=== PATIENT | female | born 1985 | race Caucasian/White ===

== ENCOUNTER 2017-04-02 08:22 | Day surgery (SDC) | payer OTHER ==
[2017-03-28 10:19] LABS: HEMATOCRIT 36.6 % (36.0-47.0); HGB HCT DIFFERENCE -0.6; MEAN CORPUSCULAR HEMOGLOBIN 26.8 pg (27.0-33.4); MEAN CORPUSCULAR HGB CONC 32.9 g/dL (32.0-36.0); MEAN CORPUSCULAR VOLUME 82 fl (80-97); RED CELL DISTRIBUTION WIDTH 14.8 % (11.5-14.0); WHITE BLOOD COUNT 6.6 10^3/uL (4.0-10.5)
[2017-03-28 10:35] LABS: APPEARANCE,URINE CLEAR; BILIRUBIN,URINE NEGATIVE (NEGATIVE); GLUCOSE, URINE NEGATIVE (NEGATIVE); KETONES,URINE NEGATIVE (NEGATIVE); LEUKOCYTE ESTERASE,URINE NEGATIVE (NEGATIVE); NITRITE,URINE NEGATIVE (NEGATIVE); PROTEIN,URINE NEGATIVE (NEGATIVE); URINE SPECIFIC GRAVITY 1.028; UROBILINOGEN,URINE NEGATIVE mg/dL (<2.0)
[2017-03-28 10:53] LABS: ALANINE AMINOTRANSFERASE 26 U/L (9-52); ALBUMIN 4.3 g/dL (3.5-5.0); ALKALINE PHOSPHATASE 62 U/L (38-126); ANION GAP 8 (5-19); ASPARTATE AMINO TRANSFERASE 19 U/L (14-36); BILIRUBIN,DIRECT 0.4 mg/dL (0.0-0.4); BILIRUBIN,TOTAL 0.9 mg/dL (0.2-1.3); BLOOD UREA NITROGEN 12 mg/dL (7-20); CALCIUM 9.6 mg/dL (8.4-10.2); CARBON DIOXIDE 28 mmol/L (22-30); CHLORIDE 103 mmol/L (98-107); CREATININE RESULT 0.73 mg/dL (0.52-1.25); GLUCOSE 87 mg/dL (75-110); POTASSIUM 4.3 mmol/L (3.6-5.0); SODIUM 139.4 mmol/L (137-145); TOTAL PROTEIN 7.1 g/dL (6.3-8.2)
[~2017-04-02 08:22] MED LIST: CEFAZOLIN 2 GM/D5W RTU 2 GM/50 ML RTUPB IV PRN; DEXAMETHASONE SOD PHOSPHATE INJ 4 MG/1 ML VIAL ONE; GABAPENTIN 400 MG CAPSULE PO PRN; GLYCOPYRROLATE INJ 0.4 MG/2 ML VIAL ONE; LACTATED RINGERS 1000 ML IV PRN; LIDOCAINE 0.5% INJ-PF (5 MG/ML) 50 ML SDV SUBCUT PRN; LIDOCAINE 2% INJ-PF (20 MG/ML) 10 ML AMPUL ONE; METOCLOPRAMIDE HCL INJ/PF 10 MG/2 ML SDV ONE; NEOSTIGMINE METHYLSULFATE 10 MG/10 ML VIAL ONE; ONDANSETRON HCL INJ/PF 4 MG/2 ML SDV ONE; ROCURONIUM BROMIDE INJ 50 MG/5 ML VIAL IV ONE
[2017-04-02] MEDS ORDERED: PROMETHAZINE HCL INJ 25 MG/1 ML VIAL ONE (10:04)
[2017-04-02] MEDS ORDERED: MIDAZOLAM 2 MG/2 ML INJ ONE ×2 (10:04→10:05)
[2017-04-02] MEDS ORDERED: FENTANYL CITRATE INJ/PF 100 MCG/2 ML AMPUL ONE (10:05)
[2017-04-02] MEDS ORDERED: EPHEDRINE SULFATE INJ 50 MG/1 ML AMPULE ONE (10:05)
[2017-04-02] MEDS ORDERED: IBUPROFEN INJ 800 MG/8 ML VIAL IV ONE (10:06)
[2017-04-02] MEDS ORDERED: ACETAMINOPHEN 100 ML IV ONE (10:06)
[2017-04-02] MEDS ORDERED: HYDROMORPHONE HCL INJ/PF 2 MG/ML AMPULE ONE (10:06)
[2017-04-02] MEDS ORDERED: PROPOFOL INJ 200 MG/20 ML VIAL IV ONE (10:06)
[2017-04-02] MEDS ORDERED: BUPIVACAINE HCL 0.25 % INJ/PF (2.5 MG/1 ML) 30 ML VIAL ONE (10:14)
[2017-04-02] MEDS ORDERED: DIPHENHYDRAMINE HCL 50 MG/ML VIAL IV PRN (11:56)
[2017-04-02] MEDS ORDERED: ONDANSETRON HCL INJ/PF 4 MG/2 ML SDV IV PRN ×2 (11:56→13:12)
[2017-04-02] MEDS ORDERED: FENTANYL CITRATE INJ/PF 100 MCG/2 ML AMPUL IV PRN ×3 (11:56)
[2017-04-02] MEDS ORDERED: PROMETHAZINE HCL INJ 25 MG/1 ML VIAL IV PRN ×2 (11:56)
[2017-04-02] MEDS ORDERED: MEPERIDINE HCL/PF INJ 25 MG/1 ML DISP.SYRIN IV PRN (11:56)
[2017-04-02] MEDS ORDERED: MORPHINE SULFATE 10 MG/ML INJ IV PRN (11:56)
[2017-04-02] MEDS ORDERED: OXYCODONE-ACETAMINOPHEN 5-325 MG TABLET PO PRN ×2 (11:56)
--- NOTE | 2017-04-02 13:01 | PDOC DISCHARGE SUMMARY ---
Discharge Summary (SDC) - Discharge Final Diagnosis: Menorrhagia Dysmenorrhea Date of Surgery: 04/02/17 Discharge Date: 04/03/17 Condition: Good Forms: Post Operative Treatment or Instructions: Robotic assisted total laparoscopic hysterectomy, bilateral salpingectomy, lysis of pelvic adhesions Cystoscopy Referrals: MILDRED WRIGHT MD [NO LOCAL MD] - Discharge Diet: As Tolerated, Regular Respiratory Treatments at Home: Deep Breathing/Coughing Discharge Activity: Activity As Tolerated, Balance Activity w/Rest, Pelvic Rest , Slowly Increase Activity, No tub bath - you may shower Home Care Assistance: None Needed Report the Following to Your Physician Immediately: Shortness of Breath, Vomiting, Increase in Pain, Fever over 101 Degrees, Unusual Bleeding, Redness, Swelling, Warmth, Drainage-Foul Smelling, Increased Vaginal Bleed
[2017-04-02] MEDS: FENTANYL CITRATE INJ/PF 100 MCG/2 ML AMPUL ONE ×2 (13:10→13:22)
[2017-04-02] MEDS: OXYCODONE-ACETAMINOPHEN 5-325 MG TABLET PO PRN ×2 (14:38→18:25)
[2017-04-02] MEDS: OXYCODONE HCL IR 5 MG TABLET PO PRN ×2 (15:58→20:35)
[2017-04-02] MEDS ORDERED: (PENDING PHARMACY ID) (Oxycodone Hcl/Acetaminophen [Percocet 10-325 Mg Tablet] 1 TAB) PO SCH (18:00)
[2017-04-02] MEDS: IBUPROFEN 800 MG TABLET PO PRN (18:25)
[2017-04-02] MEDS: OXYCODONE HCL IR 5 MG TABLET PO SCH (22:45)
[2017-04-02] MEDS: OXYCODONE-ACETAMINOPHEN 5-325 MG TABLET PO SCH (22:45)
[2017-04-03] MEDS: OXYCODONE-ACETAMINOPHEN 5-325 MG TABLET PO PRN (01:51)
[2017-04-03] MEDS: OXYCODONE HCL IR 5 MG TABLET PO PRN ×2 (04:54→09:49)
[2017-04-03] MEDS: OXYCODONE HCL IR 5 MG TABLET PO SCH (05:41)
[2017-04-03] MEDS: OXYCODONE-ACETAMINOPHEN 5-325 MG TABLET PO SCH (05:41)
--- NOTE | 2017-04-03 06:34 | RADIOLOGY REPORT (SQ) ---
EXAM DESCRIPTION: CTA CHEST COMPLETED DATE/TIME: 04/03/2017 5:57 am REASON FOR STUDY: suspected PE, c/o pain right side of chest. s/p hysterectomy N93.9 ABNORMAL UTERI NE AND VAGINAL BLEEDING, UNSPECIFIED N94.5 SECONDARY DYSMENORRHEA COMPARISON: 09/03/2013. TECHNIQUE: CT scan of the chest performed using helical scanning technique with dynamic intravenous contrast injection. Images reviewed with lung, soft tissue and bone windows. Reconstructed coronal and sagittal MPR images reviewed. Additional 3 dimensional post-processing performed to develop Maximal Intensity Projection images (PR P). All images stored on PACS. All CT scanners at this facility use dose modulation, iterative reconstruction, and/or weight based d osing when appropriate to reduce radiation dose to as low as reasonably achievable (ALARA). [facility]: Dose Right [facility]: CareDose [facility]: Dose Right [facility]: Teradose 4D [facility]: Designer Material CONTRAST TYPE AND DOSE: contrast/concentration: Isovue 370.00 mg/ml; Total Contrast Delivered: 100.0 ml; Total Saline Delivered: 56.0 ml RENAL FUNCTION: None required. The patient is less than 50 years old. RADIATION DOSE: Up-to-date CT equipment and radiation dose reduction techniques were employed. CTDIv ol: 36.4 mGy. DLP: 1071 mGy-cm. . LIMITATIONS: None. FINDINGS: LUNGS AND PLEURA: No masses, infiltrates, pneumothorax. No pleural effusions, calcificati ons. Minimal bibasilar atelectasis -scar. AORTA AND GREAT VESSELS: No aneurysm or dissection. HEART: No pericardial effusion. No right ventricular strain. PULMONARY ARTERIES: No emboli visualized in the main pulmonary arteries or the segmental branches. HILAR AND MEDIASTINAL STRUCTURES: No identified masses or abnormal nodes. HARDWARE: None in the chest. UPPER ABDOMEN: Cholecystectomy. Small gas bubbles of the upper abdomen consistent with recent surger y. Limited exam. THYROID AND OTHER SOFT TISSUES: No masses. No adenopathy. BONES: No acute or significant finding. 3D MIPS: Confirm above findings. OTHER: No other significant finding. IMPRESSION: Small FREE AIR in the abdomen consistent with recent history of hysterectomy. No acute cardiopulmonary findings. NO PULMONARY EMBOLI. COMMENT: This report was called to Nurse Amauri Neal at06:26 on 04/03/2017. TECHNICAL DOCUMENTATION: JOB ID: [id number] Quality ID # [id number]: Final reports with documentation of one or more dose reduction techniques (e.g., Au tomated exposure control, adjustment of the mA and/or kV according to patient size, use of iterative reconstruction technique) 2010 [employer]- All Rights Reserved
[2017-04-03] MEDS ORDERED: ALPRAZOLAM 0.5 MG TABLET PO PRN (06:52)
[2017-04-03] MEDS: IBUPROFEN 800 MG TABLET PO PRN (08:24)
[2017-04-03 10:04] VITALS: BP 120/85
--- NOTE | 2017-04-03 10:39 | XCELERA REPORT ---
[address] [address] Lower Extremity Venous Evaluation Name: ARNULFO MOSLEY Age: 32 yrs Gender: Female : 1985 Patient Status: Outpatient Patient Location: [facility]208^A Study Date: 04/03/2017 07:55 AM Procedure: Color flow and duplex imaging of the veins of the right lower extremity as well as the left Common Femoral vein. Reason For Study: Suspected DVT Ordering Physician: MILDRED WRIGHT Performed By: Alesha Lyons Right Sided Venous Evaluation Normal vessel filling wall to wall, compression and augmentation as well as Colour flow down to the infrageniculate veins. Left Sided Venous Evaluation The left common femoral vein is fully compressible. Spontaneous and phasic flow is present in the left common femoral vein. Interpretation Summary No duplex evidence of DVT or obstruction in the right lower extremity nor in the left Common Femoral vein. : MILDRED WRIGHT > Patrick Everett
--- NOTE | 2017-04-17 16:08 | OPERATIVE REPORT E ---
Operative Report NAME: ARNULFO MOSLEY : 1985 AGE: 32Y DATE OF SURGERY: 04/02/2017 ROOM: 208 PREOPERATIVE DIAGNOSIS: Menorrhagia and dysmenorrhea. POSTOPERATIVE DIAGNOSES: 1. Menorrhagia and dysmenorrhea. 2. Pelvic adhesions. PROCEDURE: Robotic-assisted total laparoscopic hysterectomy, bilateral salpingectomy, and lysis of adhesions. SURGEON: MILDRED WRIGHT M.D. SWITCH MAKER: Dr. Nigel Parks ANESTHESIA: General. COMPLICATIONS: None. ESTIMATED BLOOD LOSS: Per medical record anesthesia report. URINE OUTPUT: Clear at the end of the procedure. SPECIMENS: Uterus, cervix, bilateral fallopian tube remnants. FINDINGS: Normal-appearing uterus with some scar tissue due to prior sections anteriorly and in the posterior cul-de-sac some filmy adhesions. Fallopian tube consistent with bilateral tubal ligation. Normal-appearing ovaries bilaterally. INDICATIONS: This is a 32-year-old female, 7, para 4-0-3-5, with a history of menorrhagia and dysmenorrhea refractory to medical management. After discussing the risks, benefits, and alternatives, including, but not limited to, observation, medical management, endometrial ablation, operative hysteroscopy, open abdominal hysterectomy, total vaginal hysterectomy were discussed with the patient, she elected for the above procedure. PROCEDURE: After the patient was properly consented she was taken to the operating room where general anesthesia was introduced with endotracheal intubation. The patient was transferred to a dorsal lithotomy position using adjustable Corbin stirrups and prepped and draped in the usual sterile fashion. A surgical time out was held. We began with the placement of a VCare medium sized uterine manipulator in typical fashion and placed in a Bauer catheter. Gloves were changed and we proceeded above where 0.25% plain Marcaine local anesthetic was placed supraumbilically. A 12 mm skin incision was made with a scalpel followed by a Veress needle introduced into the peritoneal cavity with correct placement ascertained by a drop in CO2 pressure to less than 3 mmHg. Pneumoperitoneum was established to a pressure of 15 mmHg. The Veress needle was removed and a 12 mm bladeless trocar was advanced into the pneumoperitoneum where immediate visualization with the camera demonstrated an atraumatic entry. We subsequently placed 2 right and 1 left lateral port following the typical routine of local anesthesia followed by a skin incision of 8 mm which was the size of all of these ports followed by placement of the ports under direct visualization. With all ports in place the patient was put in steep Trendelenburg position, the robot was docked, and I scrubbed out and proceeded to the robotic console. My assistant professor of dietetics proceeded to the speech and language assistant port at the laparoscopic port site in the right upper quadrant. Pelvic anatomy was inspected and the findings noted above. The ureters were identified by peristalsis in their usual course at the pelvic brim bilaterally. Dissection was begun on the right using the fenestrated bipolar graspers and the vessel sealer. The round ligament on the right was cauterized and transected. Next, the broad ligament was opened and dissected inferiorly and anteriorly where dense adhesions were found at the bladder flap. This dissection was begun but would be finished at a later point in the surgery. Next, the fallopian tube remnant was dissected from the tubo-ovarian ligament. This dissection was continued along the lateral portion of the uterine body to connect with the previously transected round ligament, also transecting and ligating the utero-ovarian ligament. The broad ligament was then opened and the uterine artery was dissected, identified, cauterized, and transected at the area next to the lower uterine segment. Then, being very careful to hug the uterus during this portion of the procedure, the dissection was continued along the side of the cervix to the top of the Amina ring. The same dissection was repeated on the left side and the areas of dissection were noted to be hemostatic. Next, the vessel sealer was replaced with the monopolar scissors and the edges of the VCare cervical cap were identified. The anterior scar tissue and bladder flap were then further dissected using monopolar cautery and bipolar graspers to be incised and reduced and pushed away from the uterus. The colpotomy was initially added with monopolar cautery on the posterior area behind the uterus in between the uterosacral ligaments and carried around circumferentially until the specimen was freed and pulled through the vagina. Vaginal cuff was then closed with a running V-Loc suture of 3-0 Monocryl, incorporating the uterosacral pedicles for support. The pelvis was then irrigated copiously, hemostasis was noted, and FloSeal hemostatic agent was applied. The robot was undocked. All instruments were removed, the abdomen was desufflated, and the ports were removed. At this time the 12 mm port site fascia was closed with 0 Vicryl and the skin of the 8 and 12 mm ports closed with 4-0 Monocryl in a subcuticular fashion and a Dermabond dressing was applied. Anesthesia was reversed. Sponge, lap, and needle counts were correct at the end of the procedure, and the patient was taken to the PACU in stable condition. DICTATING PHYSICIAN: MILDRED WRIGHT M.D. [id number] PHY#: [id number] ID: [id number] JOB#: [id number] ACCT: [id number] cc:MILDRED WRIGHT M.D. >
== END 2017-04-03 10:58 | disposition home or self-care (01) ==
LOC: OROUT 08:22 → 2N 14:20 → OROUT 04-03 10:58
PROVIDERS: ATTEND Obstetrics & Gynecology
PROC: 0UTC4ZZ Resection of Cervix, Percutaneous Endoscopic Approach (ICD-10-PCS; 2017-04-02)
PROC: 0UT74ZZ Resection of Bilateral Fallopian Tubes, Percutaneous Endoscopic Approach (ICD-10-PCS; 2017-04-02)
PROC: 8E0W4CZ Robotic Assisted Procedure of Trunk Region, Percutaneous Endoscopic Approach (ICD-10-PCS; 2017-04-02)
PROC: 0UT94ZZ Resection of Uterus, Percutaneous Endoscopic Approach (ICD-10-PCS; principal; 2017-04-02 10:30)
DX: N92.0 Excessive and frequent menstruation with regular cycle (principal); N94.5 Secondary dysmenorrhea; N73.6 Female pelvic peritoneal adhesions (postinfective); Z88.2 Allergy status to sulfonamides; Z88.3 Allergy status to other anti-infective agents; Z79.899 Other long term (current) drug therapy
CPT/HCPCS: 58571; S2900; 36415; 71275; 80053; 81001; 81025; 840; 85027; 86850; 86900; 86901; 88307; 93971; J0131; J0690; J1100; J1170; J1741; J2250; J2405; J2550; J2704; J2765; J3010; J3490

== ENCOUNTER 2018-07-02 14:19 | Emergency (ER) | payer OTHER | END 2018-07-02 14:45 | disposition left against medical advice (07) | LOC: ER 14:19 | DX: Z53.21 Procedure and treatment not carried out due to patient leaving prior to being seen by health care provider (principal) ==

== ENCOUNTER 2018-07-02 21:06 | Emergency (ER) | payer MEDICAID, OTHER ==
[2018-07-02] MEDS ORDERED: KETOROLAC TROMETHAMINE INJ/PF 30 MG/1 ML SDV IV ONE (22:34)
[2018-07-02] MEDS ORDERED: NORMAL SALINE 1000 ML 1,000 ML IV ONE (22:34)
--- NOTE | 2018-07-02 23:07 | ER Document Report ---
ED ENT - General Chief Complaint: Sore Throat Stated Complaint: SORE THROAT Time Seen by Provider: 07/02/18 22:24 Mode of Arrival: Ambulatory Information source: Patient TRAVEL OUTSIDE OF THE [place] IN LAST 30 DAYS: No - HPI Patient complains to provider of: Throat problem Onset: Other - 3 days Onset/Duration: Persistent Quality of pain: Achy Severity: Moderate Location of pain: Throat Associated symptoms: Fever, Sore throat Recently seen / treated by doctor: Yes Notes: Patient is a 33-year-old otherwise healthy female presenting to the emergency room today complaining of 3-day history of fever, sore throat, body aches, she was seen at a urgent care facility on Sunday and diagnosed with strep pharyngitis and started on penicillin as well as his own, she reports that she has been feeling worse over the past 2 days and has gotten no relief from these medications - Related Data Allergies/Adverse Reactions: Sulfa (Sulfonamide Antibiotics) Allergy (Unknown, Verified 04/02/17 09:20) ciprofloxacin [From Cipro] Allergy (Verified 04/02/17 09:20) Anaphylaxis ciprofloxacin HCl [From Cipro] Allergy (Verified 04/02/17 09:20) Anaphylaxis Past Medical History - General Information source: Patient - Social History Smoking Status: Never Smoker Family History: Reviewed & Not Pertinent - Past Medical History Cardiac Medical History: Denies: Hx Coronary Artery Disease, Hx DVT, Hx Heart Attack, Hx Hypertension Pulmonary Medical History: Denies: Hx Asthma, Hx Bronchitis, Hx COPD, Hx Pneumonia Neurological Medical History: Denies: Hx Cerebrovascular Accident, Hx Migraine, Hx Seizures Endocrine Medical History: Denies: Hx Diabetes Mellitus Type 2 Renal/ Medical History: Reports: Hx Ovarian Cysts. Denies: Hx Kidney Stones, Hx Pelvic Inflammatory Disease GI Medical History: Denies: Hx Diverticulitis, Hx Gastritis, Hx Gastroesophageal Reflux Disease Musculoskeletal Medical History: Denies Hx Arthritis, Reports Hx Musculoskeletal Trauma Skin Medical History: Denies Hx Cellulitis, Denies Hx MRSA Past Surgical History: Reports: Hx Section - x3, Hx Cholecystectomy, Hx Gynecologic Surgery - D&Cx2, Hx Orthopedic Surgery - L knee, Hx Tubal Ligation - Immunizations Hx Diphtheria, Pertussis, Tetanus Vaccination: Yes Review of Systems - Review of Systems Constitutional: See HPI EENT: See HPI Cardiovascular: No symptoms reported Respiratory: No symptoms reported Gastrointestinal: No symptoms reported Genitourinary: No symptoms reported Female Genitourinary: No symptoms reported Musculoskeletal: See HPI Skin: No symptoms reported Hematologic/Lymphatic: No symptoms reported Neurological/Psychological: No symptoms reported -: Yes All other systems reviewed and negative Physical Exam - Vital signs Vitals: Temp Pulse Resp BP Pulse Ox 98.6 F 102 H 18 134/83 H 99 07/02/18 21:12 07/02/18 21:12 07/02/18 21:12 07/02/18 21:12 07/02/18 21:12 Interpretation: Tachycardic - General General appearance: Appears well, Alert - HEENT Head: Normocephalic, Atraumatic Eyes: Normal Conjunctiva: Normal Extraocular movements intact: Yes Eyelashes: Normal Pupils: PERRL Pharynx: Erythema, Exudate, Tonsillar hypertrophy Neck: Lymphadenopathy - Respiratory Respiratory status: No respiratory distress Chest status: Nontender Breath sounds: Normal Chest palpation: Normal - Cardiovascular Rhythm: Regular Heart sounds: Normal auscultation Murmur: No - Abdominal Inspection: Normal Distension: No distension Bowel sounds: Normal Tenderness: Nontender Organomegaly: No organomegaly - Back Back: Normal, Nontender - Extremities General upper extremity: Normal inspection, Nontender, Normal color, Normal ROM , Normal temperature General lower extremity: Normal inspection, Nontender, Normal color, Normal ROM , Normal temperature, Normal weight bearing. No: Eliseo's sign - Neurological Neuro grossly intact: Yes Cognition: Normal Orientation: AAOx4 [place] Coma Scale Eye Opening: Spontaneous [place] Coma Scale Verbal: Oriented [place] Coma Scale Motor: Obeys Commands [place] Coma Scale Total: 15 Speech: Normal Motor strength normal: LUE, RUE, LLE, RLE Sensory: Normal - Psychological Associated symptoms: Normal affect, Normal mood - Skin Skin Temperature: Warm Skin Moisture: Dry Skin Color: Normal Course - Re-evaluation Re-evalutation: 07/02/18 23:51 Patient with mild leukocytosis and positive rapid strep test, she is currently taking penicillin and prednisone without any relief, however she is only been on antibiotics for 2-1/2 days at this point in time, she was given a dose of IV Rocephin as well as IV fluids and Toradol, advised to continue antibiotics and prednisone at home, follow-up with ENT or return if symptoms worsen, patient acknowledges understanding and agreement with this plan - Vital Signs Vital signs: Temp Pulse Resp BP Pulse Ox 98.6 F 102 H 18 134/83 H 99 07/02/18 21:12 07/02/18 21:12 07/02/18 21:12 07/02/18 21:12 07/02/18 21:12 - Laboratory Result Diagrams: 07/02/18 23:00 07/02/18 23:00 Laboratory results interpreted by me: 07/02/18 23:00 WBC 14.3 H Absolute Neutrophils 10.5 H Discharge - Discharge Clinical Impression: Strep pharyngitis Condition: Stable Disposition: HOME, SELF-CARE Instructions: Strep Throat ([facility]) Additional Instructions: Follow up with your primary care provider in one to 2 days. Return to the emergency room immediately if symptoms worsen or any additional concerns. Drink plenty of fluids. Get plenty of rest. Tylenol or Motrin as needed for fever or pain. Prescriptions: Cephalexin Monohydrate [Keflex 500 mg Capsule] 500 mg PO BID #20 capsule Referrals: MATTHEW SCHNEIDER MD [Primary Care Provider] - Follow up as needed PATY LIEGH MD [ACTIVE STAFF] - Follow up as needed TIAGO FELDMAN DO [ASSOCIATE] - Follow up as needed
[2018-07-02 23:20] LABS: ABSOLUTE BASOPHILS # (AUTO) 0.1 10^3/uL (0.0-0.2); ABSOLUTE EOSINOPHILS # (AUTO) 0.2 10^3/uL (0.0-0.6); ABSOLUTE LYMPHOCYTES (AUTO) 2.5 10^3/uL (0.5-4.7); ABSOLUTE NEUT (AUTO) 10.5 10^3/uL (1.7-8.2); BASOPHILS % (AUTO) 0.5 % (0-2); EOSINOPHILS % (AUTO) 1.3 % (0-6); HEMATOCRIT 41.3 % (36.0-47.0); HEMOGLOBIN 14.1 g/dL (12.0-15.5); LYMPHOCYTES % (AUTO) 17.7 % (13-45); MEAN CORPUSCULAR VOLUME 88 fl (80-97); MONOCYTES % (AUTO) 6.8 % (3-13); PLATELET COUNT 287 10^3/uL (150-450); RED BLOOD COUNT 4.69 10^6/uL (3.72-5.28); RED CELL DISTRIBUTION WIDTH 12.7 % (11.5-14.0); SEGMENTED NEUTROPHILS % (AUTO) 73.7 % (42-78); TOTAL CELLS COUNTED % (AUTO) 100 %; WHITE BLOOD COUNT 14.3 10^3/uL (4.0-10.5)
[2018-07-02] MEDS ORDERED: CEFTRIAXONE INJ 1000 MG VIAL IV ONE (23:32)
[2018-07-02 23:33] LABS: ANION GAP 13 (5-19); BLOOD UREA NITROGEN 9 mg/dL (7-20); CARBON DIOXIDE 28 mmol/L (22-30); CHLORIDE 101 mmol/L (98-107); GLUCOSE 86 mg/dL (75-110); POTASSIUM 4.3 mmol/L (3.6-5.0); SODIUM 141.8 mmol/L (137-145)
[2018-07-03 01:09] VITALS: BP 126/64
== END 2018-07-03 01:07 | disposition home or self-care (01) ==
LOC: ER 21:06
DX: J02.0 Streptococcal pharyngitis (principal); R50.9 Fever, unspecified; M79.10 Myalgia, unspecified site; Z88.2 Allergy status to sulfonamides; Z88.3 Allergy status to other anti-infective agents; Z90.49 Acquired absence of other specified parts of digestive tract; Z98.51 Tubal ligation status; Z88.0 Allergy status to penicillin
CPT/HCPCS: 99283; 96361; 96375; 96365; 36415; 87880; 85025; 86308; 80048; J1885; J0696; J7030